=== PATIENT | male | born 1945 | race Caucasian/White ===

== ENCOUNTER 2018-05-24 12:49 | Outpatient (CLI) ==
[2016-04-10 10:33] VITALS: BMI 27.0
--- NOTE | 2018-05-24 15:55 | CT ---
EXAM: CT sinuses without contrast HISTORY: Frontal facial and jaw pain COMPARISON: None TECHNIQUE: CT sinuses performed without intravenous contrast. Coronal and sagittal reformatted imag es obtained. The FINDINGS: Mastoid air cells clear. Temporal mandibular joints normally aligned. No fracture identi fied. Degenerative change in the spine. Cervical spinal fusion hardware is incompletely imaged. Gl obes and retrobulbar structures unremarkable. Mild mucosal thickening right maxillary sinus and mild to moderate mucosal thickening left maxillary sinus. Mild mucosal thickening of the ethmoid air ralph ls. Sphenoid sinuses clear. Frontal sinuses clear. Mucoperiosteal thickening of the ostiomeatal un its that are either narrowed or occluded bilaterally. Mild leftward deviation nasal septum with a le ftward projecting septal spur measuring 6 mm. IMPRESSION: Sinusitis as described.
== END 2018-05-24 12:50 | disposition home or self-care (01) ==
LOC: RAD 12:49
PROVIDERS: ATTEND Family Medicine
DX: J32.9 Chronic sinusitis, unspecified (principal)

== ENCOUNTER 2019-02-10 14:38 | Outpatient (CLI) | payer OTHER ==
[2016-04-10 10:33] VITALS: BMI 27.0
--- NOTE | 2019-02-10 14:58 | DI ---
EXAM: CHEST FRONTAL AND LATERAL VIEWS HISTORY: Cough. COMPARISON: 08/22/2015 FINDINGS: Heart size and mediastinal contour remain within normal limits. There is diffuse, chron ic appearing interstitial accentuation. No acute infiltrates are seen. No vascular congestion. The re is no consolidation, visible pleural fluid or pneumothorax. Bones reveal no acute fracture. Pos top changes of the lower cervical spine. IMPRESSION: No acute cardiopulmonary process.
== END 2019-02-10 14:39 | disposition home or self-care (01) ==
LOC: RAD 14:38
PROVIDERS: ATTEND Family Medicine
DX: R05 Cough (principal); R50.9 Fever, unspecified

== ENCOUNTER 2019-03-17 09:28 | Outpatient (CLI) ==
[2016-04-10 10:33] VITALS: BMI 27.0
--- NOTE | 2019-03-17 10:01 | DI ---
EXAM: Two views of the right hip. History: Right hip pain. Comparison: Right hip radiograph 01/13/2012 Findings: No acute fracture or dislocation. Mild narrowing of the right hip joint with marginal scl erosis and no significant osteophyte formation. Surgical clips are seen within the pelvis. Impression: 1. No acute osseous abnormality. 2. Mild arthritis of the right hip joint. 3. If pain persists, consider further evaluation with MRI
== END 2019-03-17 09:29 | disposition home or self-care (01) ==
LOC: RAD 09:28
PROVIDERS: ATTEND Family Medicine
DX: M25.551 Pain in right hip (principal)